=== PATIENT | male | born 1970 | race Caucasian/White ===

== ENCOUNTER 2016-07-21 06:50 | Outpatient (CLI) | payer BC ==
[2016-07-21 08:04] LABS: ALT (SGPT) 66 U/L (0-55); AST (SGOT) 47 U/L (5-34); Alkaline Phosphatase 68 U/L (40-150); Anion Gap 14 mmol/L (10-20); BUN (Urea Nitrogen) 17 mg/dL (8.9-20.6); Bilirubin, Total 0.7 mg/dL (0.2-1.2); Calc. Creatinine Clearance 0 mL/min (70-130); Calcium 9.4 mg/dL (7.8-10.44); Carbon Dioxide 25 mmol/L (22-29); Chloride 106 mmol/L (98-107); Estimated GFR-MDRD 70; Globulin 2.6 g/dL (2.4-3.5); LDL Cholesterol, Calculated 65 mg/dL; Protein, Total 6.6 g/dL (6.0-8.3)
[2016-07-21 08:16] LABS: #Basophils 0.1 thou/uL (0.0-0.2); #Eosinphils 0.2 thou/uL (0.0-0.7); #Lymphocytes 1.5 thou/uL (1.20-3.40); #Monocytes 0.4 thou/uL (0.11-0.59); #Neutrophils 3.4 thou/uL (1.40-6.50); %Basophils 1.2 % (0.0-1.0); %Eosinophils 4.1 % (0.0-10.0); %Monocytes 7.6 % (0.0-10.0); Hematocrit 44.4 % (42.0-52.0); Mean Platelet Volume 8.4 fL (7.4-10.4); White Blood Cell (WBC) Count 5.6 thou/uL (4.8-10.8)
[2016-07-21 08:31] LABS: Hemoglobin A1c 5.7 % (4.0-6.0)
[2016-07-21 17:49] LABS: Free T3 3.49 pg/mL (1.71-3.71)
[2016-07-21 17:53] LABS: Insulin 26.2 uU/mL (3.0-25.0)
== END 2016-07-21 06:51 | disposition home or self-care (01) ==
LOC: BURLAB 06:50
PROVIDERS: ATTEND Internal Medicine Endocrinology, Diabetes & Metabolism
DX: E29.1 Testicular hypofunction (principal); E03.9 Hypothyroidism, unspecified; E55.9 Vitamin D deficiency, unspecified; E88.81 Metabolic syndrome and other insulin resistance
CPT/HCPCS: 36415; 80053; 80061; 82306; 82672; 83036; 83525; 84403; 84439; 84443; 84481; 85025

== ENCOUNTER 2016-11-28 09:28 | Outpatient (CLI) | payer BC ==
[2016-11-28 11:02] LABS: #Basophils 0.1 thou/uL (0.0-0.2); #Eosinphils 0.2 thou/uL (0.0-0.7); #Lymphocytes 1.8 thou/uL (1.20-3.40); #Monocytes 0.5 thou/uL (0.11-0.59); #Neutrophils 3.7 thou/uL (1.40-6.50); %Basophils 1.6 % (0.0-1.0); %Eosinophils 3.9 % (0.0-10.0); %Lymphocytes 28.6 % (21.0-51.0); %Monocytes 7.1 % (0.0-10.0); %Neutrophils 58.8 % (42.0-75.0); ALT (SGPT) 33 U/L (8-55); AST (SGOT) 28 U/L (5-34); Albumin 3.8 g/dL (3.5-5.0); Alkaline Phosphatase 69 U/L (40-150); Anion Gap 13 mmol/L (10-20); BUN (Urea Nitrogen) 16 mg/dL (8.9-20.6); Bilirubin, Total 0.5 mg/dL (0.2-1.2); Calc. Creatinine Clearance 0 mL/min (70-130); Calcium 9.1 mg/dL (7.8-10.44); Carbon Dioxide 25 mmol/L (22-29); Cardiac Risk 5.2 (Less than 4.5); Chloride 105 mmol/L (98-107); Cholesterol 192 mg/dl (< 200 Desired); Estimated GFR-MDRD 62; Globulin 2.7 g/dL (2.4-3.5); Glucose 116 mg/dL (70-105); HDL Cholesterol 37 mg/dL (>60 Neg Risk); Hemoglobin 16.2 g/dL (14.0-18.0); Mean Corpuscular HGB CONC 35.3 g/dL (32.0-36.0); Mean Corpuscular Hemoglobin 33.6 pg (27.0-31.0); Mean Platelet Volume 7.5 fL (7.4-10.4); Platelet Count 194 thou/uL (130-400); Potassium 4.4 mmol/L (3.5-5.1); Protein, Total 6.5 g/dL (6.0-8.3); RBC Distribution Width 11.3 % (11.5-14.5); Red Blood Cell (RBC) Count 4.84 mill/uL (4.70-6.10); Sodium 139 mmol/L (136-145); Triglycerides 434 mg/dL (Less than 150); White Blood Cell (WBC) Count 6.3 thou/uL (4.8-10.8)
[2016-11-28 11:18] LABS: Free T4 (Free Thyroxine) 1.25 ng/dL (0.70-1.48); Thyroid Stimulating Hormone Less than 0.0025 uIU/mL (0.35-4.94); Vitamin D, 25 Hydroxy 59.2 ng/ml (> 30.0)
[2016-11-28 11:42] LABS: Hemoglobin A1c 6.2 % (4.0-6.0)
[2016-11-28 18:30] LABS: Albumin (w/Testosterone Panel) 3.8 g/dL
[2016-11-28 18:50] LABS: Insulin 16.3 uU/mL (3.0-25.0)
[2016-11-28 18:56] LABS: Sex Hormone Binding Globulin 33.9 nmol/L (11-78); Testosterone, Free 181.8 pg/mL (47-244)
== END 2016-11-28 09:29 | disposition home or self-care (01) ==
LOC: BURLAB 09:28
PROVIDERS: ATTEND Internal Medicine Endocrinology, Diabetes & Metabolism
DX: E03.9 Hypothyroidism, unspecified (principal); E88.81 Metabolic syndrome and other insulin resistance; E55.9 Vitamin D deficiency, unspecified; E78.2 Mixed hyperlipidemia
CPT/HCPCS: 36415; 80053; 80061; 82306; 82672; 83036; 83525; 84270; 84403; 84439; 84443; 84481; 85025

== ENCOUNTER 2017-07-06 14:05 | Emergency (ER) | payer BC ==
[2017-07-06 14:59] LABS: #Basophils 0.1 thou/uL (0.0-0.2); #Eosinphils 0.1 thou/uL (0.0-0.7); #Lymphocytes 1.8 thou/uL (1.20-3.40); #Monocytes 0.5 thou/uL (0.11-0.59); #Neutrophils 4.9 thou/uL (1.40-6.50); %Eosinophils 1.7 % (0.0-10.0); %Lymphocytes 24.5 % (21.0-51.0); %Monocytes 6.6 % (0.0-10.0); %Neutrophils 66.3 % (42.0-75.0); Hemoglobin 16.6 g/dL (14.0-18.0); Mean Corpuscular Hemoglobin 32.7 pg (27.0-31.0); Mean Platelet Volume 6.3 fL (7.4-10.4); Platelet Count 276 thou/uL (130-400); RBC Distribution Width 11.4 % (11.5-14.5); Red Blood Cell (RBC) Count 5.07 mill/uL (4.70-6.10); White Blood Cell (WBC) Count 7.4 thou/uL (4.8-10.8)
[2017-07-06 15:10] LABS: PTT 28.6 SEC (22.9-36.1)
[2017-07-06 15:11] LABS: Prothrombin Time 12.9 SEC (12.0-14.7)
[2017-07-06 15:15] LABS: D-Dimer Test Less than 0.27 *mcg/mL (0.27-0.43)
[2017-07-06 15:18] LABS: ALT (SGPT) 43 U/L (8-55); AST (SGOT) 34 U/L (5-34); Albumin 4.1 g/dL (3.5-5.0); Alkaline Phosphatase 83 U/L (40-150); Anion Gap 16 mmol/L (10-20); BUN (Urea Nitrogen) 17 mg/dL (8.9-20.6); Bilirubin, Total 0.4 mg/dL (0.2-1.2); Calc. Creatinine Clearance 0 mL/min (70-130); Calcium 9.6 mg/dL (7.8-10.44); Carbon Dioxide 25 mmol/L (22-29); Chloride 103 mmol/L (98-107); Estimated GFR-MDRD 58; Globulin 3.4 g/dL (2.4-3.5); Glucose 109 mg/dL (70-105); Potassium 4.3 mmol/L (3.5-5.1); Protein, Total 7.5 g/dL (6.0-8.3); Sodium 140 mmol/L (136-145)
[2017-07-06 15:19] LABS: CKMB 4.9 ng/mL (0-6.6); Troponin I Less than 0.010 ng/mL (< 0.028)
== END 2017-07-06 15:03 | disposition left against medical advice (07) ==
LOC: BURERS 14:05
DX: R07.89 Other chest pain (principal); F31.9 Bipolar disorder, unspecified; Z79.899 Other long term (current) drug therapy
CPT/HCPCS: 80053; 82553; 84484; 85025; 85379; 85610; 85730; 93005; 94760

== ENCOUNTER 2024-05-02 11:39 | Emergency (ER) | payer BC ==
[2024-05-02] MEDS ORDERED: Bupivacaine 0.5% 10 ML VIAL ONE (11:58)
[2024-05-02] MEDS ORDERED: Penicillin V Potassium 250 MG TAB ONE (12:14)
== END 2024-05-02 12:19 | disposition home or self-care (01) ==
LOC: BURERS 11:39
DX: K04.7 Periapical abscess without sinus (principal); K13.0 Diseases of lips; I10 Essential (primary) hypertension
CPT/HCPCS: 99282; J3490